=== PATIENT | male | born 1965 | race Caucasian/White ===

== ENCOUNTER 2018-10-09 14:14 | Emergency (ER) | payer OTHER ==
[~2018-10-09] VITALS: Ht 188 cm; Wt 81.2 kg
[2018-10-09 14:16] VITALS: BP 127/80
--- NOTE | 2018-10-09 14:25 | NUR ---
PT AMBULATORY TO ROOM FROM TRIAGE WITH STEADY GATE. NAD NOTED.
[2018-10-09] MEDS ORDERED: OXYcodone/APAP 5/325MG TABLET PO ONE (15:00)
[2018-10-09] MEDS ORDERED: HYDROcodone/APAP 5/325 TABLET ONE (15:02)
[2018-10-09] MEDS ORDERED: OXYcodone/APAP 5/325MG TABLET ONE (15:05)
[2018-10-09 15:13] LABS: BASOPHILS # (AUTO) 0.01 x10^3/uL (0-0.1); BASOPHILS % (AUTO) 0 % (0-1); EOSINOPHILS # (AUTO) 0.13 x10^3/uL (0-0.4); EOSINOPHILS % (AUTO) 2 % (1-7); LYMPHOCYTES # (AUTO) 0.58 x10^3/uL (1-3.4); LYMPHOCYTES % (AUTO) 10 % (22-44); MD NO; MEAN CORPUSCULAR HEMOGLOBIN 32.2 pg (27.5-34.5); MEAN CORPUSCULAR HGB CONC 33.3 g/dL (33.2-36.2); MEAN CORPUSCULAR VOLUME 96.9 fL (81-97); MONOCYTES # (AUTO) 0.48 x10^3/uL (0.2-0.8); MONOCYTES % (AUTO) 8 % (2-9); NEUTROPHILS # (AUTO) 4.51 x10^3/uL (1.8-6.8); NEUTROPHILS % (AUTO) 79 % (42-75); PLATELET COUNT 212 x10^3/uL (130-400); RED BLOOD COUNT 5.08 x10^6/uL (4.38-5.82); RED CELL DISTRIBUTION WIDTH 13.3 % (9.4-14.8)
[2018-10-09 15:21] LABS: ALBUMIN 4.5 g/dL (3.4-5.0); ANION GAP 6 mmol/L (5-15); CALCIUM 9.4 mg/dL (8.5-10.1); CHLORIDE 106 mmol/L (98-107); CREATININE 1.02 mg/dL (0.7-1.3)
--- NOTE | 2018-10-09 15:28 | NUR ---
UA COLLECTED AND SENT
[2018-10-09 15:37] LABS: MICROSCOPIC NOT IND
[2018-10-09 15:39] LABS: CULTURE INDICATED? NO
--- NOTE | 2018-10-09 16:09 | NUR ---
DC EDUCATION PROVIDED, PT DEMONSTRATES UNDERSTANDING. PT AMBULATED STEADILY TO DC WITH RN AND SO. SO TO TRANSPORT PT HOME.
== END 2018-10-09 16:11 | disposition home or self-care (01) ==
LOC: ED 14:40
DX: M54.42 Lumbago with sciatica, left side (principal); G89.29 Other chronic pain
CPT/HCPCS: 36415; 72110; 80048; 81003; 82040; 85025; 99284